=== PATIENT | female | born 1995 | race Caucasian/White ===

== ENCOUNTER 2017-01-14 16:40 | Observation (INO) | payer OTHER ==
[~2017-01-14] VITALS: Ht 162.6 cm; Wt 143.6 kg
[~2017-01-14 16:40] MED LIST: BIRTH CONTROL PILL PO; NO HOME MEDICATIONS; NORCO 325 MG-7.1 TAB PO
[2017-01-14 18:23] LABS: BASO % 0.2 % (0.0-2.0); EOS % 0.2 % (0-4.0); GRAN # 14.7 (1.4-6.5); GRAN % 84.3 % (42.2-75.2); HEMATOCRIT 37.2 % (37.0-47.0); LYMPH # 1.4 (1.2-3.4); MEAN CELL VOLUME 86 fl (80.0-100.0); MEAN CORPUSCULAR HEMOGLOBIN 28 pg (27.0-31.0); MEAN CORPUSCULAR HGB CONC 32 g/dl (33.0-37.0); MEAN PLATELET VOLUME 8.9 fl (7.4-10.4); MONO # 1.2 (0.1-0.6); PLATELET COUNT 316 K/mm3 (130-400); RED BLOOD COUNT 4.33 M/mm3 (4.10-5.30); WHITE BLOOD COUNT 17.5 K/mm3 (4.8-10.8)
[2017-01-14] MEDS ORDERED: DESYREL 50MG50 MG PO (18:28)
[2017-01-14] MEDS ORDERED: GLUCOPHAGE500 MG/TAB PO (18:28)
[2017-01-14] MEDS ORDERED: ZYBAN150 M1 (18:29)
[2017-01-14] MEDS ORDERED: PRILOSEC 20MG20 MG PO (18:29)
[2017-01-14 18:38] LABS: ADJUSTED CALCIUM 8.9 mg/dL (8.4-10.2); BILIRUBIN,TOTAL 0.5 mg/dL (0.0-1.0); C-REACTIVE PROTEIN 1.9 mg/dL (0.0-0.9); CALCIUM 8.9 mg/dL (8.4-10.2); CREATININE, serum 0.62 mg/dL (0.52-1.25); POTASSIUM 3.7 mmol/L (3.4-5.0); TOTAL PROTEIN 6.7 gm/dL (6.4-8.2)
[2017-01-14 20:09] LABS: COLLECTION METHOD CLEAN CATCH
[2017-01-14 20:18] LABS: URINE APPEARANCE Clear; URINE COLOR Yellow
[2017-01-14 20:19] LABS: PH 5 (5-8); URINE BILIRUBIN Negative (NEGATIVE); URINE GLUCOSE Negative (NEGATIVE); URINE KETONE Negative (NEGATIVE); URINE PROTEIN(semi-quant) Negative (NEGATIVE)
[2017-01-14 20:20] LABS: SQUAMOUS EPITHELIAL 0-2 /hpf; URINE BACTERIA None Seen /hpf; URINE BLOOD Negative (NEGATIVE); URINE LEUKOCYTE ESTERASE Negative (NEGATIVE); URINE RBC 0-2 /hpf; URINE UROBILINOGEN Negative (NEGATIVE); URINE WBC 0-2 /hpf
[2017-01-15] VITALS (9 sets, daily range): BP systolic 104–147; BP diastolic 59–78; PULSE 90–104; TEMP 97.9–98.6
[2017-01-15] MEDS ORDERED: MOTRIN 600600 MG/TAB PO (00:44)
[2017-01-15] MEDS ORDERED: NORCO 325 MG-51 TAB PO (00:44)
[2017-01-15] MEDS ORDERED: COLACE 100100 MG/CAP PO (00:45)
== END 2017-01-15 13:05 | disposition home or self-care (01) ==
LOC: COL.ER 16:40 → OB 21:00
PROVIDERS: Physician Assistant
DX: K35.80 Unspecified acute appendicitis (principal); E66.01 Morbid (severe) obesity due to excess calories; E11.8 Type 2 diabetes mellitus with unspecified complications; Z79.84 Long term (current) use of oral hypoglycemic drugs; I10 Essential (primary) hypertension; I25.10 Atherosclerotic heart disease of native coronary artery without angina pectoris; J45.909 Unspecified asthma, uncomplicated
CPT/HCPCS: J0330; J0694; J1170; J1885; J2405; J2543; J2704; J3010; J7030; J7050; Q9967

== ENCOUNTER 2019-04-20 20:11 | Emergency (ER) | payer SELFPAY ==
[~2019-04-20] VITALS: Ht 162.6 cm; Wt 143.2 kg
[~2019-04-20 20:11] MED LIST changes: +COLACE 100100 MG/CAP PO; +DESYREL 50MG50 MG PO; +GLUCOPHAGE500 MG/TAB PO; +MOTRIN 600600 MG/TAB PO; +NORCO 325 MG-51 TAB PO; +PRILOSEC 20MG20 MG PO; +ZYBAN150 M1
[2019-04-20 20:33] VITALS: BP 134/73; TEMP 97.9
[2019-04-20 23:07] VITALS: PULSE 75
== END 2019-04-20 23:07 | disposition home or self-care (01) ==
LOC: COL.ER 20:11
DX: J03.90 Acute tonsillitis, unspecified (principal); Z79.1 Long term (current) use of non-steroidal anti-inflammatories (NSAID)
CPT/HCPCS: J1100